=== PATIENT | female | born 1940 | race African-American/Black ===

== ENCOUNTER 2017-06-13 07:00 | Day surgery (SDC) | payer OTHER ==
[2017-06-10 15:29] VITALS: BMI 22.9
[2017-06-13] MEDS ORDERED: PROPOFOL 20 ML ONE ×2 (07:09)
[2017-06-13] MEDS ORDERED: LIDOCAINE HCL/PF 2% SDV 5ML VIAL ONE (07:10)
[2017-06-13 17:09] VITALS: TEMP 98
[2017-06-13 17:14] VITALS: BP 135/72; PULSE 67
--- NOTE | 2017-06-14 15:43 | PATH ---
Surgical Pathology Report Patient Name: JEWEL POOLE [facility]. Rec. #: [id number] /Age/Gender: 1940 (Age: 77) / F Account: [id number] Location: [facility] Taken: 06/13/2017 Received: 06/13/2017 Reported: 06/14/2017 Physicians: Jeff Silva M.D. Specimen(s) Received A: BX ASCENDING POLYP B: BX DISTAL RIGHT COLON Clinical History Polyps Final Diagnosis A. ASCENDING POLYP, BIOPSY: TUBULAR ADENOMA. B. DISTAL RIGHT COLON, BIOPSY: TUBULAR ADENOMA. Electronically Signed Amanda Roberts M.D. Gross Description A. Received in formalin, labeled "ascending polyp" is a garrett, irregular portion of soft tissue measuring 0.8 cm. in greatest dimension. The specimen is bisected and submitted in toto in one cassette. B. Received in formalin, labeled "distal right colon" is a garrett, irregular portion of soft tissue measuring 0.2 cm. in greatest dimension. The specimen is submitted in toto in one cassette. [facility]/06/13/2017 [facility]/06/13/2017
== END 2017-06-13 10:25 | disposition home or self-care (01) ==
LOC: FASU-ENDO 07:00
PROVIDERS: ATTEND Internal Medicine Gastroenterology
PROC: 0DBK8ZX Excision of Ascending Colon, Via Natural or Artificial Opening Endoscopic, Diagnostic (ICD-10-PCS; principal; 2017-06-13 09:23)
PROC: 0DBL8ZX Excision of Transverse Colon, Via Natural or Artificial Opening Endoscopic, Diagnostic (ICD-10-PCS; 2017-06-13 09:23)
DX: Z86.010 Personal history of colon polyps (principal); D12.2 Benign neoplasm of ascending colon; D12.3 Benign neoplasm of transverse colon
CPT/HCPCS: 88305-TC

== ENCOUNTER 2017-10-22 07:53 | Emergency (ER) | payer OTHER ==
[2017-10-22 08:00] VITALS: BP 141/80; PULSE 80; TEMP 98.4; BMI 24.1
--- NOTE | 2017-10-22 08:12 | PDOC ---
History of Present Illness - General Chief Complaint: Respiratory Stated Complaint: FLU-LIKE SYMPTOMS Time Seen by Provider: 10/22/17 08:09 History Source: Patient Exam Limitations: No Limitations - History of Present Illness Initial Comments: 10/22/17 08:10 Patient is a [77-year-old female with history of hypertension and breast cancer. Presents emergency Department with generalized body aches, tactile fever , cough since yesterday. Patient's son was diagnosed with influenza a 1 week prior. Patient reports similar symptoms. Denies any chest pain or shortness of breath. Vital signs are stable had taken antipyretic one hour prior to arrival.] Allergies: No known allergies Medications: [See medication list] Family History: Non-contributory Social History: Denies smoking, alcohol use, or IVDU Vital signs on arrival are [notable for pulse of 80] Review of Systems GENERAL/CONSTITUTIONAL: tactile fever and body aches. No weakness. No weight change.] HEAD, EYES, EARS, NOSE AND THROAT: [No change in vision. No ear pain or discharge. No sore throat. ] CARDIOVASCULAR: [No chest pain or shortness of breath.] RESPIRATORY: [Dry cough, wheezing, no hemoptysis] GASTROINTESTINAL: [No nausea, vomiting, diarrhea or constipation. No rectal bleeding.] GENITOURINARY: [No dysuria, frequency, or change in urination.] MUSCULOSKELETAL: [No joint or muscle swelling or pain. No neck or back pain.] SKIN: [No rash or easy bruising.] NEUROLOGIC: [No headache, vertigo, loss of consciousness, or loss of sensation.] ENDOCRINE: [No increased thirst. No abnormal weight change.] HEMATOLOGIC/LYMPHATIC: [No anemia, easy bleeding, or history of blood clots.] ALLERGIC/IMMUNOLOGIC: [No hives or skin allergy. No latex allergy.] Physical Exam: GENERAL: [The patient is awake, alert, and fully oriented, in no acute distress. ] HEAD: [Normal with no signs of trauma.] EYES: [Pupils equal, round and reactive to light, extraocular movements intact, sclera anicteric, conjunctiva clear.] ENT: [Ears normal, nares patent, oropharynx clear without exudates. Moist mucous membranes. No uvula deviation] NECK: [Normal range of motion, supple without lymphadenopathy, JVD, or masses.] LUNGS: [Breath sounds equal, expiratory wheezes, no crackles] HEART: [Regular rate and rhythm, normal S1 and S2 without murmur, rub or gallop. ] ABDOMEN: [Soft, nontender, normoactive bowel sounds. No guarding, no rebound. No masses. No bruising or abrasions] MUSCULOSKELETAL: [Normal range of motion, no edema. No clubbing or cyanosis. No cords, erythema, or tenderness. No CVA Tenderness with fist.] NEUROLOGICAL: [Cranial nerves II through XII grossly intact. Normal speech, normal gait.] SKIN: [Warm, Dry, normal turgor, no rashes or lesions noted.] Past History - Past Medical History Allergies/Adverse Reactions: Allergies Allergy/AdvReac Type Severity Reaction Status Date / Time No Known Allergies Allergy Verified 06/13/17 07:40 Home Medications: Ambulatory Orders Amlodipine Besylate [Norvasc -] 5 mg PO DAILY 03/29/14 Letrozole 2.5 mg PO DAILY 03/29/14 Metoprolol Succinate [Toprol Xl] 100 mg PO DAILY 03/29/14 Cholecalciferol (Vitamin D3) [Vitamin D3] 2,000 unit PO DAILY 06/10/17 Irbesartan/Hydrochlorothiazide [Irbesartan-Hctz 300-12.5 mg Tb] 1 each PO DAILY 06/10/17 Albuterol Sulfate Inhaler - [Ventolin HFA Inhaler -] 1 - 2 inh PO Q4H #1 inhaler 10/22/17 Azithromycin [Zithromax 250mg Tablets -] 250 mg PO UTDICT #6 tab 10/22/17 Oseltamivir Phosphate [Tamiflu -] 75 mg PO BID #10 capsule 10/22/17 Anemia: No Asthma: No Cancer: Yes (BREAST RIGHT AND LEFT BREAST) Cardiac Disorders: No CVA: No COPD: No CHF: No Dementia: No Diabetes: No GI Disorders: No Disorders: No HTN: Yes Hypercholesterolemia: No Liver Disease: No Seizures: No Thyroid Disease: No - Surgical History Abdominal Surgery: No Appendectomy: No Cardiac Surgery: No Cholecystectomy: Yes (08/02/11) Lung Surgery: No Neurologic Surgery: No Orthopedic Surgery: No - Immunization History Immunization Up to Date: Yes - Suicide/Smoking/Psychosocial Hx Smoking History: Never smoked Have you smoked in the past 12 months: No Hx Alcohol Use: No Drug/Substance Use Hx: No Substance Use Type: None Hx Substance Use Treatment: Yes *Physical Exam - Vital Signs Last Vital Signs Temp Pulse Resp BP Pulse Ox 98.4 F 80 18 141/80 100 10/22/17 07:57 10/22/17 07:57 10/22/17 07:57 10/22/17 07:57 10/22/17 07:57 Medical Decision Making - Medical Decision Making 10/22/17 08:41 A/P: Patient with influenza-type illness however with cough and expiratory wheezes I will perform chest x-ray to rule out a pneumonia will give Combivent treatment and then reevaluate. Vital Signs are stable, O2 sats are normal. 10/22/17 10:23 Patient is nontoxic appearing, no respiratory distress, s/p neb, the patient is sating 98%on room air. Patient with influenza-type illness, chest x-ray showed no pneumonia but does have COPD I will discharge patient home on azithromycin and Tamiflu. Albuterol as needed. I discussed the physical exam findings, ancillary test results and final diagnoses with the patient. I answered all of the patient's questions. The patient was satisfied with the care received and felt comfortable with the discharge plan and treatment plan. The patient will call to arrange follow-up and will return to the Emergency Department with any new, persistent or worsening symptoms. 10/22/17 10:26 *DC/Admit/Observation/Transfer Diagnosis at time of Disposition: Influenza-like symptoms, Exposure to influenza, Cough - Discharge Dispostion Disposition: HOME Condition at time of disposition: Stable Admit: No - Prescriptions Prescriptions: Albuterol Sulfate Inhaler - [Ventolin HFA Inhaler -] 1 - 2 inh PO Q4H #1 inhaler Azithromycin [Zithromax 250mg Tablets -] 250 mg PO UTDICT #6 tab Oseltamivir Phosphate [Tamiflu -] 75 mg PO BID #10 capsule - Referrals Referrals: Isaak Lange MD [Primary Care Provider] - - Patient Instructions Printed Discharge Instructions: Influenza Additional Instructions: You have been diagnosed with influenza . Please take the medication as directed. You are contagious. Please attempt to avoid contact of multiple individuals as this will cause the infection to spread. Return to emergency room if shortness of breath, wheezing, difficulty breathing, increased respiratory rate, chest pain, or fainting occurs. - Post Discharge Activity
[2017-10-22] MEDS ORDERED: ALBUTEROL SO4 2.5/IPRATROPIUM 0.5 INH SOL 3 ML VIAL.NEB. NEB ONE ×2 (08:20→08:25)
== END 2017-10-22 10:30 | disposition home or self-care (01) ==
LOC: JERFT 07:53
PROC: 3E0F7GC Introduction of Other Therapeutic Substance into Respiratory Tract, Via Natural or Artificial Opening (ICD-10-PCS; principal; 2017-10-22)
DX: J11.1 Influenza due to unidentified influenza virus with other respiratory manifestations (principal); I10 Essential (primary) hypertension; Z85.3 Personal history of malignant neoplasm of breast
CPT/HCPCS: 71046-TC-FY; 94640; 99281-25

== ENCOUNTER 2017-11-20 08:11 | Emergency (ER) | payer OTHER ==
[2017-11-20 08:20] VITALS: TEMP 97.8; BMI 22.8
--- NOTE | 2017-11-20 09:24 | PDOC ---
Attending Attestation - HPI HPI: 11/20/17 10:25 The patient is a 77 year old female, with a significant past medical history of hypertension and breast cancer, who presents to the emergency department with headache, dizziness, and right ear pain for several days. She endorses a glare in vision with movement. Patient reports feeling off balance shortly after her ear pain began. Patient denies any tinnitus, ear discharge, fever, chills, cough, lightheadedness, nausea, vomiting, chest pain, shortness of breath, diaphoresis, or palpitations. She denies any history of vertigo. - Medical Decision Making 11/20/17 10:26 Documentation prepared by Jacques Casey, acting as medical laboratory specialist for Stefan Liu MD. <Jacques Casey - Last Filed: 11/20/17 11:27> - Resident Resident Name: Musa Adrian - ED Attending Attestation I have performed the following: I have examined & evaluated the patient, The case was reviewed & discussed with the resident, I agree w/resident's findings & plan, Exceptions are as noted - Physicial Exam PE: 11/20/17 11:48 Patient is awake and alert, well-appearing, in no distress Normocephalic/atraumatic PERRLA, EOMI, no nystagmus bilaterally No carotid bruits Right TM appears sclerotic; left TM is within normal limit No mastoid tenderness bilaterally CTA Cranial nerves II through XII are grossly intact; motor is 5 of 54; no pronation drift; finger to nose is normal bilaterally, rapid alternating movements are intact bilaterally [id number] is normal bilaterally; gait is stable. - Medical Decision Making 11/20/17 11:50 77-year-old female with history of hypertension and breast CA presents to the ER with signs and symptoms of peripheral vertigo. In the ER, patient is awake and alert, nonfocal neurologically. Asians symptoms had resolved after administration of meclizine. CT of head shows no evidence of acute intra- cranial pathology. HINTS exam is within normal limit. I do not suspect centrally induced vertigo. Will discharge with ENT follow-up. <Stefan Liu - Last Filed: 11/20/17 11:50> ED Treatment Course - RADIOLOGY Radiograph Interpretation: 11/20/17 11:28 EXAM: Head CT INTERPRETED BY: Dr. Castillo REVIEWED BY: Dr. Liu IMPRESSION: [id number] volume loss without evidence of acute intracranial pathology. Chronic sinusitis in included portion of the ethmoid air cells. The mastoid air cells and middle ear are well aerated, bilaterally. Correlate clinically to determine further evaluation in view of the clinical history. - Medications Given in the ED: ED Medications Discontinued Medications Generic Name Dose Route Start Last Admin Trade Name Freq PRN Reason Stop Dose Admin Meclizine HCl 25 mg 11/20/17 10:06 11/20/17 10:18 Antivert - PO 11/20/17 10:07 25 mg ONCE ONE Administration <Jacques Casey - Last Filed: 11/20/17 11:27>
[2017-11-20] MEDS ORDERED: MECLIZINE HCL 25 MG TABLET (FP) PO ONE (10:06)
[2017-11-20] MEDS ORDERED: MECLIZINE HCL 25 MG TABLET (FP) ONE (10:13)
--- NOTE | 2017-11-20 12:02 | PDOC ---
History of Present Illness - General Chief Complaint: Lightheaded Stated Complaint: RT EAR PAIN Time Seen by Provider: 11/20/17 08:46 History Source: Patient - History of Present Illness Initial Comments: 11/20/17 12:01 77F with pmh of hypertension and breast cancer, who presents to the emergency department with headache, vertigo that she describes as being off balance , and right ear pain for several days. She endorses a glare in vision associated with bouts of vertigo. Patient reports feeling off balance shortly after her ear pain began. Patient denies any tinnitus, ear discharge, fever, chills, cough, lightheadedness, nausea, vomiting, chest pain, shortness of breath, diaphoresis , or palpitations. She admits to remote history of vertigo taht turned out to be an infection. 11/20/17 12:05 Past History - Past Medical History Allergies/Adverse Reactions: Allergies Allergy/AdvReac Type Severity Reaction Status Date / Time No Known Allergies Allergy Verified 11/20/17 08:20 Home Medications: Ambulatory Orders Amlodipine Besylate [Norvasc -] 5 mg PO DAILY 11/20/17 Budesonide/Formeterol Fumarate [SYMBICORT 80/4.5mcg -] 1 inh PO BID 11/20/17 Fluticasone Prop 0.05% Nasal [Flonase -] 1 - 2 spray NS BID 11/20/17 Ipratropium [place] 0.2 mg IH DAILY 11/20/17 Irbesartan/Hydrochlorothiazide [Irbesartan-Hctz 300-12.5 mg Tb] 1 each PO DAILY 11/20/17 Letrozole 2.5 mg PO DAILY 11/20/17 Meclizine HCl [Antivert -] 25 mg PO TID #21 tablet 11/20/17 Metoprolol Succinate 100 mg PO DAILY 11/20/17 Anemia: No Asthma: No Cancer: Yes (BREAST RIGHT AND LEFT BREAST) Cardiac Disorders: No CVA: No COPD: No CHF: No Dementia: No Diabetes: No GI Disorders: No Disorders: No HTN: Yes Hypercholesterolemia: No Liver Disease: No Seizures: No Thyroid Disease: No - Surgical History Abdominal Surgery: No Appendectomy: No Cardiac Surgery: No Cholecystectomy: Yes (08/02/11) Lung Surgery: No Neurologic Surgery: No Orthopedic Surgery: No - Immunization History Immunization Up to Date: Yes - Suicide/Smoking/Psychosocial Hx Smoking History: Never smoked Have you smoked in the past 12 months: No Information on smoking cessation initiated: No Hx Alcohol Use: No Drug/Substance Use Hx: No Substance Use Type: None Hx Substance Use Treatment: Yes Cardiac Specific PMH - Complaint Specific PMHX Pacemaker: No Review of Systems - Review of Systems Able to Perform ROS?: Yes Is the patient limited Jamaican proficient: No Constitutional: No: Symptoms Reported HEENTM: Yes: See HPI Respiratory: No: Symptoms reported Cardiac (ROS): No: Symptoms Reported ABD/GI: No: Symptoms Reported : No: Symptoms Reported Musculoskeletal: No: Symptoms Reported Integumentary: No: Symptoms Reported Neurological: Yes: See HPI All Other Systems: Reviewed and Negative *Physical Exam - Vital Signs Last Vital Signs Temp Pulse Resp BP Pulse Ox 97.8 F 76 19 115/83 99 11/20/17 08:18 11/20/17 08:18 11/20/17 08:18 11/20/17 08:18 11/20/17 08:18 - Physical Exam General Appearance: Yes: Nourished, Appropriately Dressed. No: Apparent Distress HEENT: positive: EOMI, YULISSA, Normal ENT Inspection, Other (Likely right TM sclerosis) Respiratory/Chest: positive: Lungs Clear, Normal Breath Sounds. negative: Chest Tender, Respiratory Distress Cardiovascular: positive: Regular Rhythm, Regular Rate, S1, S2 Gastrointestinal/Abdominal: positive: Normal Bowel Sounds, Flat, Soft. negative : Tender Musculoskeletal: positive: Normal Inspection. negative: CVA Tenderness Extremity: positive: Normal Capillary Refill, Normal Inspection, Normal Range of Motion Integumentary: positive: Normal Color, Dry, Warm Neurologic: positive: Fully Oriented, Alert, Normal Mood/Affect ED Treatment Course - RADIOLOGY Radiology Studies Ordered: Category Date Time Status HEAD CT WITHOUT CONTRAST [CT] Stat CT Scan 11/20/17 10:19 Completed - Medications Given in the ED: ED Medications Discontinued Medications Generic Name Dose Route Start Last Admin Trade Name Freq PRN Reason Stop Dose Admin Meclizine HCl 25 mg 11/20/17 10:06 11/20/17 10:18 Antivert - PO 11/20/17 10:07 25 mg ONCE ONE Administration Medical Decision Making - Medical Decision Making 11/20/17 12:07 HINTS eXam negative. Negative Ct scan. given meclizine. Will dc on meclizine., 11/20/17 12:07 Ruled out central vertigo, most likely peripheral. *DC/Admit/Observation/Transfer Diagnosis at time of Disposition: Peripheral vertigo involving right ear - Discharge Dispostion Disposition: HOME Condition at time of disposition: Improved Admit: No - Referrals Referrals: Isaak Lange MD [Primary Care Provider] - - Patient Instructions Printed Discharge Instructions: DI for Vertigo Additional Instructions: Come back to the ER for any new, worsening or concerning symptoms. Follwo up with your primary care provider Dr. Arshad within 2-3 days. - Post Discharge Activity
[2017-11-20 12:21] VITALS: BP 118/68; PULSE 69
== END 2017-11-20 12:43 | disposition home or self-care (01) ==
LOC: JER 08:11
DX: H81.391 Other peripheral vertigo, right ear (principal); Z85.3 Personal history of malignant neoplasm of breast; I10 Essential (primary) hypertension
CPT/HCPCS: 70450-TC; 99284-25

== ENCOUNTER 2019-07-02 07:24 | Day surgery (SDC) | payer OTHER ==
[2019-06-26 16:22] VITALS: BMI 25.0
[2019-07-02 07:41] VITALS: TEMP 98.2
[2019-07-02] MEDS ORDERED: PROPOFOL 20 ML ONE (08:22)
[2019-07-02 10:37] VITALS: BP 110/66; PULSE 68
--- NOTE | 2019-07-06 17:06 | PATH ---
Surgical Pathology Report Patient Name: JEWEL POOLE [facility]. Rec. #: [id number] /Age/Gender: 1940 (Age: 79) / F Account: [id number] [facility] Taken: 07/02/2019 Received: 07/02/2019 Reported: 07/06/2019 Physicians: Jeff Silva M.D. Specimen(s) Received POLYP LEFT COLON Clinical History History of polyps Postoperative diagnosis: Diverticulosis Final Diagnosis POLYP, LEFT COLON, POLYPECTOMY: TUBULAR ADENOMA. Electronically Signed Sole Smith M.D. Gross Description Received in formalin, labeled "polyp left colon" is a garrett, irregular portion of soft tissue measuring 0.4 cm. in greatest dimension. The specimen is submitted in toto in one cassette. 07/03/201907/03/2019
== END 2019-07-02 10:40 | disposition home or self-care (01) ==
LOC: FASU-ENDO 07:24
PROVIDERS: ATTEND Internal Medicine Gastroenterology
PROC: 0DBM8ZX Excision of Descending Colon, Via Natural or Artificial Opening Endoscopic, Diagnostic (ICD-10-PCS; principal; 2019-07-02 09:44)
DX: Z86.010 Personal history of colon polyps (principal); D12.4 Benign neoplasm of descending colon; K57.30 Diverticulosis of large intestine without perforation or abscess without bleeding
CPT/HCPCS: 88305-TC

== ENCOUNTER 2020-03-27 09:12 | Emergency (ER) | payer OTHER ==
[2020-03-27 09:21] VITALS: BP 137/77; PULSE 78; TEMP 98.1; BMI 21.6
--- NOTE | 2020-03-27 09:21 | PDOC ---
Rapid Medical Evaluation Chief Complaint: Ear Problem Time Seen by Provider: 03/27/20 09:18 Medical Evaluation: Allergies Allergy/AdvReac Type Severity Reaction Status Date / Time No Known Allergies Allergy Verified 06/26/19 16:10 03/27/20 09:19 I performed a brief in-person evaluation of this patient. Pt is a 79 y/o female who presents to the ED with complaint of Right ear pain that has been ongoing for the last 1 week. Pt states that she recently lost her son and has been crying a lot, and this is possibly causing her ear pain. She denies any fevers. She denies any fevers. She admits to hearing changes. Pertinent physical exam findings: speaking in full and complete sentences, no drainage appreciated from ear I have ordered the following: deferred to treated providers discretion Patient to proceed to ED for further evaluation Discharge Disposition - Diagnosis Right ear pain - Referrals - Patient Instructions - Post Discharge Activity
--- NOTE | 2020-03-27 11:02 | PDOC ---
History of Present Illness - General Chief Complaint: Ear Problem Stated Complaint: EAR PROBLEM Time Seen by Provider: 03/27/20 09:18 History Source: Patient Exam Limitations: No Limitations - History of Present Illness Initial Comments: 03/27/20 11:03 79 y/o female presents to the ED with complaints of arthritic pain x months and asking for recommendations. Pt is here specifically for deneen ear fullness, nasal congestion, and a ringing to the rt ear x 1 week. Patient states recently lost her son and has been crying daily causing her sinuses to feel full especially to the forehead and cheek region. Patient states has not taken anything for the above and decided to come here for evaluation. Patient denies headache, visual changes, neck pain, recent head injury, recent dental surgery sore throat, or difficulty breathing. Is this a multiple visit Asthma Patient?: No Timing/Duration: 1 week Severity: mild Associated Symptoms: reports: denies symptoms Past History - Travel History Traveled outside of the country in the last 30 days: No Close contact w/someone who was outside of country & ill: No - Medical History Allergies/Adverse Reactions: Allergies Allergy/AdvReac Type Severity Reaction Status Date / Time No Known Allergies Allergy Verified 03/27/20 09:21 Home Medications: Ambulatory Orders Amlodipine Besylate [Norvasc -] 5 mg PO DAILY 11/20/17 Irbesartan/Hydrochlorothiazide [Irbesartan-Hctz 300-12.5 mg Tb] 1 each PO DAILY 11/20/17 Letrozole 2.5 mg PO DAILY 11/20/17 Metoprolol Succinate 100 mg PO DAILY 11/20/17 Loratadine [Claritin] 10 mg PO DAILY #7 tablet 03/27/20 Anemia: No Asthma: No Cancer: Yes (BREAST RIGHT AND LEFT BREAST) Cardiac Disorders: No CVA: No COPD: No CHF: No Dementia: No Diabetes: No GI Disorders: No Disorders: No HTN: Yes Hypercholesterolemia: No Liver Disease: No Seizures: No Thyroid Disease: No - Surgical History Abdominal Surgery: Yes Appendectomy: No Cardiac Surgery: No Cholecystectomy: Yes (08/02/11) Lung Surgery: No Neurologic Surgery: No Orthopedic Surgery: No - Immunization History Immunization Up to Date: Yes - Psycho-Social/Smoking History Patient Lives Alone: No Lives with/in: daughter Smoking History: Never smoked Have you smoked in the past 12 months: No - Substance Abuse Hx (Audit-C & DAST Scrn) How often the patient has a drink containing alcohol: Never Score: In Men: 4 or > Positive; In Women: 3 or > Positive: 0 Screen Result (Pos requires Nsg. Audit-10AR): Negative Review of Systems - Review of Systems Able to Perform ROS?: No Is the patient limited Azerbaijani proficient: No Constitutional: No: Symptoms Reported HEENTM: Yes: Ear Pain, Nose Congestion Respiratory: No: Symptoms reported Cardiac (ROS): No: Symptoms Reported ABD/GI: No: Symptoms Reported : No: Symptoms Reported Musculoskeletal: Yes: Joint Pain, Joint Stiffness. No: Joint Swelling, Muscle Pain Integumentary: No: Symptoms Reported Neurological: No: Symptoms reported Endocrine: No: Symptoms Reported Hematologic/Lymphatic: No: Symptoms Reported *Physical Exam - Vital Signs Last Vital Signs Temp Pulse Resp BP Pulse Ox 98.1 F 78 18 137/77 98 03/27/20 09:17 03/27/20 09:17 03/27/20 09:17 03/27/20 09:03/27/20 09:17 - Physical Exam General Appearance: Yes: Nourished, Appropriately Dressed. No: Apparent Distress HEENT: positive: EOMI, YULISSA, Nasal Congestion, Sinus Tenderness (mild frontal), Other. negative: TMs Normal (tm with cloudy fluid behind tm, bone visualized), Pale Conjunctivae Neck: positive: Supple. negative: Tender, Decreased range of motion, L ymphadenopathy (R), Lymphadenopathy (L) Respiratory/Chest: positive: Lungs Clear, Normal Breath Sounds. negative: Respiratory Distress, Accessory Muscle Use Cardiovascular: positive: Regular Rhythm, Regular Rate. negative: Murmur Gastrointestinal/Abdominal: positive: Soft. negative: Tenderness Extremity: positive: Normal Capillary Refill, Normal Inspection (Mild crepitus noted with extension and flexion of bilateral patellas), Normal Range of Motion. negative: Tender Neurologic: positive: Motor Strength 5/5 (ambulatory) Medical Decision Making - Medical Decision Making 03/27/20 11:11 CC: ear /nasal congestion with ringing to rt ear Exam: noted fluid behind rt tm, bone visable. sinus tenderness and boggy turbinate to rt nare Plan: dc with supportive care recommendations for arthritis and claritan for nasal congestion Discharge - Discharge Information Problems reviewed: Yes Clinical Impression/Diagnosis: Right ear pain, Arthritis Condition: Good Disposition: HOME - Additional Discharge Information Prescriptions: Loratadine [Claritin] 10 mg PO DAILY #7 tablet - Follow up/Referral Referrals: Isaak Lange MD [Primary Care Provider] - - Patient Discharge Instructions Patient Printed Discharge Instructions: Tinnitus (Alternative Therapy), DI for Arthritis Additional Instructions: At this time I recommend a moist heating pad to knees x 15 minutes and may repeat again x 1 x 15 minutes. Take Claritan for nasal /ear congestion May also consider shark cartilage but understand some side effects such as it can cause a bad taste in the mouth, nausea, vomiting, stomach upset, constipation, low blood pressure, dizziness, high blood sugar, high calcium levels, and fatigue. - Post Discharge Activity
== END 2020-03-27 11:02 | disposition home or self-care (01) ==
LOC: JER 09:12 → JERFT 09:12
DX: H92.01 Otalgia, right ear (principal)
CPT/HCPCS: 99283-25

== ENCOUNTER 2022-02-28 12:29 | Emergency (ER) | payer OTHER ==
[2022-02-28 12:51] VITALS: BP 119/72; PULSE 82; TEMP 98.1; BMI 21.9
== END 2022-02-28 14:19 | disposition home or self-care (01) ==
LOC: JERFT 12:29
DX: H93.11 Tinnitus, right ear (principal)
CPT/HCPCS: 99283-25